=== PATIENT | male | born 1940 ===

== ENCOUNTER 2017-03-01 06:25 | Day surgery (SDC) | payer MEDICARE ==
[2017-02-26 08:00] VITALS: BMI 25.2
[2017-03-01 07:30] VITALS: TEMP 97.6
[2017-03-01 07:39] LABS: BASO # 0.03 K/mm3 (0.0-2.0); BASO % 0.6 % (0.0-3.0); EOS # 0.2 (0.0-0.7); EOS % 3.9 % (1.5-5.0); GRAN # 2.71 (1.4-6.5); GRAN % 55.1 % (50.0-68.0); LYMPH # 1.6 (1.2-3.4); LYMPH % 31.6 % (22.0-35.0); MEAN CELL VOLUME 93.3 fl (80.0-105.0); MEAN CORPUSCULAR HEMOGLOBIN 31.9 pg (25.0-35.0); MEAN CORPUSCULAR HGB CONC 34.2 g/dl (31.0-37.0); MONO # 0.4 (0.1-0.6); MONO % 8.8 % (1.0-6.0); RED CELL DISTRIBUTION WIDTH 13.1 % (11.5-14.5); WHITE BLOOD COUNT 4.9 10^3/ul (4.5-11.0)
[2017-03-01 07:54] LABS: INR 1.01 (0.93-1.08); PARTIAL THROMBOPLASTIN TIME 32.3 Seconds (25.1-36.5)
[2017-03-01] MEDS ORDERED: Lidocaine 2% Inj (20ml) ONE (08:08)
[2017-03-01] MEDS ORDERED: Iohexol 350mgl/ml 50 ML ONE (08:09)
[2017-03-01] MEDS ORDERED: Midazolam 2 MG/2 ML VIAL ONE ×2 (08:09→08:54)
[2017-03-01] MEDS ORDERED: Iodixanol 320 MG/ML 200 ML BOTTLE IV ONE (08:09)
[2017-03-01 08:11] LABS: BLOOD UREA NITROGEN 15 mg/dL (7-21); CALCIUM 9.6 mg/dL (8.4-10.5); CARBON DIOXIDE 26 mmol/L (21-33); GFR AFRICAN-AMERICAN > 60; GLUCOSE,RANDOM 167 mg/dL (70-110)
[2017-03-01 08:12] LABS: CHOLESTEROL 138 mg/dL (130-200)
[2017-03-01 08:19] LABS: CHLORIDE 107 mmol/L (98-107); SODIUM 142 mmol/L (132-148)
[2017-03-01 08:31] LABS: POTASSIUM 4.7 mmol/L (3.6-5.0)
[2017-03-01] MEDS ORDERED: Sodium Chloride 0.9% 1,000 ML IV SCH (09:45)
[2017-03-01 10:16] VITALS: RESP 18
--- NOTE | 2017-03-01 10:24 | CARD ---
APPROVED REPORT EKG Measurement Heart [id number] ID [id number] <Conclusion> Electronic atrial pacemaker 100 A. paced, , new STTW changes
[2017-03-01 13:26] VITALS: O2SAT 98
[2017-03-01 14:21] VITALS: BP 113/61; PULSE 65
--- NOTE | 2017-03-01 20:14 | CARDCATH ---
PROCEDURE DATE: 03/01/2017 HISTORY: The patient is a 76-year-old male with diabetes mellitus, hypertension, hypercholesterolemia and history of pacemaker placement who underwent a stress test for chest pain. The stress test showed an ischemic area in the apex. Because this, cardiac catheterization was recommended. PROCEDURE: Left heart catheterization with coronary arteriography and left ventriculogram. The right femoral artery was cannulated with a 6-[place] sheath. There were no complications. I performed moderate sedation which included the presence of an independent trained observer that assisted in monitoring the patient's level of consciousness and physiologic status. After administration of fentanyl and Versed, my intra service time was 30 minutes. The findings on catheterization revealed a left ventricle that contracted normally. Estimated ejection fraction is 70%. His coronary anatomy revealed a right dominant circulation. The RCA revealed 50% stenosis in the proximal portion with no critical lesion seen. Left main artery was unremarkable. The LAD and diagonal vessels revealed intimal irregularities without critical lesions. The ostium of the first diagonal vessel revealed 50% stenosis. The circumflex artery and obtuse marginal branches were free of significant disease. The patient tolerated the procedure well. The MYNX system was used to close the femoral artery site. In summary, the procedure revealed 50% stenosis in the proximal RCA with 50% stenosis in the ostium of the first diagonal vessel. LV function is normal. Given these findings, the patient should remain on aspirin indefinitely and undergo a strict cardiac risk reduction program. Ruben Josue MD
== END 2017-03-01 16:05 | disposition home or self-care (01) ==
LOC: CATH 06:25
PROVIDERS: ATTEND Internal Medicine Cardiovascular Disease
DX: I25.10 Atherosclerotic heart disease of native coronary artery without angina pectoris (principal); I10 Essential (primary) hypertension; E78.00 Pure hypercholesterolemia, unspecified; E11.9 Type 2 diabetes mellitus without complications; Z79.84 Long term (current) use of oral hypoglycemic drugs; Z95.0 Presence of cardiac pacemaker
CPT/HCPCS: 36415; 80048; 80061; 85025; 85610; 85730; 86850; 86900; 93005; 93454; 99152; C1760; C1769; C2629; J1644; J2250; J3010; J7030; J7040; Q9967